=== PATIENT | female | born 1985 ===

== ENCOUNTER 2023-07-13 08:58 | Outpatient (CLI) | payer OTHER, SELFPAY ==
--- NOTE | ~2023-07-13 | SLEEP.INT_ITS ---
Polysomnography Report Patient Name: MAYITO BAR Study Date: 07/13/2023 Referring Physician: MARGE Chavez ADDENDUM This addendum is to include MSLT report. MSLT Report Patient Name: MAYITO BAR Study Date: 07/14/2023 Referring Physician: Manfred Doss PA-C Indications for Polysomnography The patient is a 38 year-old Female who is 5' 5 and weighs 184.0 lbs. Her BMI equals 30.7. A Multip le Sleep Latency Test was performed following a full night polysomnogram. Polysomnogram Data The recording montage for the MSLT includes central EEG (C3-A2, C4-A1) and occipital (O1-A2, O2-A1) d erivations, left and right eye electrooculograms (EOGs), mental/submental electromyogram (EMG), and electrocardio gram (EKG). Nap Summary: Study started at 07:38:15 AM. Nap 1 sleep latency was 19.9 minutes, REM sleep was not present. The patient said that sleep occurred . The patient reported dreaming. Nap 2 sleep latency was 18.9 minutes, REM sleep was not present. The patient said that sleep occurred . The patient reported dreaming. Nap 3 sleep latency was 20.6 minutes, REM sleep was not present. The patient said that sleep did not occur. The patient did not report dreaming. Nap 4 sleep latency was 10.5 minutes, REM sleep was not present. The patient said that sleep occurred . The patient reported dreaming. Nap 5 sleep latency was 20.4 minutes, REM sleep was not present. The patient said that sleep occurred . The patient did not report dreaming. There were 5 nap opportunities with a mean sleep latency of 18.1 minutes. The patient slept on 3 naps and REM sleep (SOREM) was present in 0 naps. Recommendations: The patient had a mean sleep latency of 18.1 minutes which is not consistent with hypersomnia. The p atient did not have any sleep onset REM present on any of the 5 naps. The results of this MSLT is not consistent wi th narcolepsy or hypersomnia. Please see recommendations on the polysomnogram report. Certification: The data obtained during this sleep study is adequate for interpretation. This sleep study has been reviewed by a board certified sleep medicine physician. Addendum Electronically signed by: Maragret Aguirre DO Date/Time: 08/03/23 16:45 Indications for Polysomnography The patient is a 38 year old Female who is 5' 5 and weighs 184.0 lbs. Her BMI equals 30.7. The patie nt's neck circumference is 13.5 inches. The [place] Sleepiness Scale score was 14. A full night polysomnogram was performed to evaluate the patient for excessive daytime sleepiness. Sleep History The patient is a [id number] female that had a sleep study by her telesales specialist for evaluation excessive daytime sleepiness. 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 She denies awakening from sleep short of breath. She denies awakening at night with heartburn, belching or cough. She rarely snores and is never loud enough andrew t others complain. She occasionally has trouble sleeping when she has a cold. She denies waking up gasping f or air throughout the night. She denies having breathing problems at night observed by herself or others. She occasionally sweats excessively at night. She rarely notices heart palpitations or irregular heartbeats during th e night. She occasionally falls asleep during the day. She rarely falls asleep driving. She frequently experienc es loss of muscle tone when extremely emotional. She frequently has trouble at school or work due to sleepiness. She denies feeling unable to move while waking up or falling asleep. She frequently experiences vivid dreamlike scenes upon awakening or falling asleep. She denies feeling afraid of falling asleep. She occasionally has nightmares. S he frequently remembers her dreams. She constantly has thoughts racing through her mind. She constantly feels sad or depressed. She
== END 2023-07-14 16:33 | disposition home or self-care (01) ==
DX: G47.10 Hypersomnia, unspecified (principal)
CPT/HCPCS: 95805; 95810